=== PATIENT | male | born 1950 | race Caucasian/White ===

== ENCOUNTER 2019-02-07 06:58 | Day surgery (SDC) | payer OTHER ==
[~2019-02-07] VITALS: Ht 165.1 cm; Wt 83.5 kg
[2019-02-07 07:44] VITALS: Ht 165.1 cm; Wt 83.5 kg
[2019-02-07] MEDS ORDERED: TERAZOSIN PO (07:59)
[2019-02-07] MEDS ORDERED: LEVOTHYROXINE PO (07:59)
[2019-02-07] MEDS ORDERED: ASPI-817 PO (07:59)
[2019-02-07] MEDS ORDERED: SIMVASTATIN PO (07:59)
[2019-02-07 08:11] VITALS: BP 145/63; PULSE 63; RESP 18
--- NOTE | 2019-02-07 09:44 | PREAC ---
Date/Time of Note Date/Time of Note DATE: 02/07/19 TIME: 09:43 Anesthesia Eval and Record Evaluation Time Pre-Procedure Interview DATE: 02/07/19 TIME: 09:43 Age 68 Sex male NPO: 8 hrs Preoperative diagnosis screening Planned procedure colonoscopy Past Medical History Past Medical History: Includes Cardio: HTN, Dyslipidemia Endo: Hypothyroid GI: Other (hemorrhoids) Surgery & Anesthesia Issues No known issue Meds Anticoagulation: No Beta Hans within 24 hr: No Reason Beta Hans not given: Pt. not on B-Hans Reported Medications [Simvastatin] No Conflict Check, PO 02/07/19 [Levothyroxine] No Conflict Check, PO 02/07/19 Aspirin* (Aspirin* EC) 81 Mg Tablet.dr, 81 MG PO DAILY, TAB 02/07/19 [Terazosin] No Conflict Check, PO 02/07/19 Meds reviewed: Yes Allergies Coded Allergies: No Known Allergy (Unverified , 02/07/19) Allergies Reviewed: Yes Labs/Studies Labs Reviewed: Reviewed by anesthesiologist test: N/A Pre-procedure Exam Last vitals Vital Signs Date Temp Pulse Resp B/P (MAP) Pulse Ox O2 O2 Flow FiO2 Time Delivery Rate 02/07/19 97.1 63 18 145/63 99 Room Air 08:11 (90) Airway: Adequate mouth opening, Adequate thyromental dist Mallampati: Mallampati II Teeth: Normal Lung: Normal Heart: Normal ASA Physical Status ASA physical status: 2 Emergency: None Planned Anesthetic General/MAC: Mask Planned Pain Management Parenteral pain med Pre-operative Attestations Prior to commencing anesthesia and surgery, the patient was re-evaluated, there was verification of: *The patient's identity *The results of appropriate recent lab work and preoperative vital signs *The above evaluation not changing prior to induction *Anesthetic plan, risk benefits, alternative and complications discussed with patient/family; questions answered; patient/family understands, accepts and wishes to proceed. MILLY CARABALLO MD Feb 07, 2019 09:44
[2019-02-07] MEDS ORDERED: LIDOCAINE 2% (SDV) 5 ML INJ ONE (09:45)
[2019-02-07] MEDS ORDERED: PROPOFOL 40 ML ONE (09:45)
[2019-02-07] MEDS ORDERED: ONDANSETRON 4 MG INJ IV PRN (10:00)
[2019-02-07] MEDS ORDERED: HYDROmorphONE 1 MG/5 ML IV SYRINGE IV PRN (10:00)
--- NOTE | 2019-02-07 10:34 | PAC ---
Date/Time of Note Date/Time of Note DATE: 02/07/19 TIME: 10:34 Post-Anesthesia Notes Post-Anesthesia Note Last documented vital signs Vital Signs Date Temp Pulse Resp B/P (MAP) Pulse Ox O2 O2 Flow FiO2 Time Delivery Rate 02/07/19 97.1 63 18 145/63 99 Room Air 08:11 (90) Activity: WNL Respiratory function: WNL Cardiovascular function: WNL Mental status: Baseline Pain reasonably controlled: Yes Hydration appropriate: Yes Nausea/Vomiting absent: Yes Comments BP: 110/68 HR: 70 RR: 16 T: 98 SaO2: 99% MILLY CARABALLO MD Feb 07, 2019 10:34
[2019-02-07 10:54] VITALS: BP 132/81; PULSE 66; RESP 14
== END 2019-02-07 15:16 | disposition home or self-care (01) ==
LOC: GIL 06:58
PROVIDERS: ATTEND Internal Medicine Gastroenterology
DX: Z12.11 Encounter for screening for malignant neoplasm of colon (principal); D12.5 Benign neoplasm of sigmoid colon; K64.8 Other hemorrhoids
CPT/HCPCS: 45380; 88305; Z7610

== ENCOUNTER 2019-05-30 16:18 | Day surgery (SDC) | payer OTHER ==
[2019-05-29 17:36] VITALS: BMI 29.1
[2019-05-30] VITALS (11 sets, daily range): BP systolic 100–137; BP diastolic 55–75; PULSE 68–94; RESP 17–24; Ht 167.6 cm; Wt 80.9 kg
[~2019-05-30] VITALS: Ht 167.6 cm; Wt 80.9 kg
[~2019-05-30 16:18] MED LIST: ASPI-817 PO; CEFAZOLIN 2 GM/50 ML (PMX) 50 ML IVPB ONE; LEVOTHYROXINE PO; SIMVASTATIN PO; TERAZOSIN PO
[2019-05-30] MEDS ORDERED: LACTATED RINGER'S 1,000 ML IV SCH (17:00)
[2019-05-30] MEDS ORDERED: AMLO2.5T78 PO (17:31)
[2019-05-30] MEDS ORDERED: ALLO100T PO (17:31)
[2019-05-30] MEDS ORDERED: EZET10TA31 PO (17:31)
[2019-05-30] MEDS ORDERED: POLYMYXIN/BACITRACIN 1L IRRIG ONE (18:00)
[2019-05-30] MEDS ORDERED: BUPIVACAINE 0.5% (SDV) 30 ML INJ ONE (18:00)
[2019-05-30] MEDS ORDERED: LIDOCAINE 1% (MPF) 30 ML INJ ONE (18:00)
--- NOTE | 2019-05-30 18:37 | HPN ---
Date/Time of Note Date/Time of Note DATE: 05/30/19 TIME: 18:37 Interval H&P Admission Note Pt. seen H&P reviewed: No system changes ALEXANDRA CAMACHO May 30, 2019 18:37
[2019-05-30] MEDS ORDERED: ROPIVACAINE 0.5 % 30 ML VIAL ONE (19:01)
[2019-05-30] MEDS ORDERED: KETAMINE (50 MG/ML) 10 ML VIAL ONE (19:32)
--- NOTE | 2019-05-30 19:51 | PREAC ---
Date/Time of Note Date/Time of Note DATE: 05/30/19 TIME: 19:49 Anesthesia Eval and Record Evaluation Time Pre-Procedure Interview DATE: 05/30/19 TIME: 19:49 Age 68 Sex male NPO: 8 hrs Preoperative diagnosis RIGHT DISTAL RADIUS FRACTURE Planned procedure ORIF RIGHT DISTAL RADIUS FRACTURE Past Medical History Past Medical History: Includes Cardio: HTN, Dyslipidemia Endo: Hypothyroid Surgery & Anesthesia Issues No known issue Meds Anticoagulation: No Beta Hans within 24 hr: No Reason Beta Hans not given: Pt. not on B-Hans Reported Medications Allopurinol* (Allopurinol*) 100 Mg Tablet, 100 MG PO DAILY, TAB 05/30/19 Ezetimibe* (Zetia*) 10 Mg Tablet, 10 MG PO DAILY, TAB 05/30/19 Amlodipine Besylate* (Amlodipine Besylate*) 2.5 Mg Tablet, 2.5 MG PO DAILY, #30 TAB 05/30/19 [Simvastatin] No Conflict Check, 20 MG PO DAILY 02/07/19 [Levothyroxine] No Conflict Check, 100 MCG PO DAILY 02/07/19 Aspirin* (Aspirin* EC) 81 Mg Tablet.dr, 81 MG PO DAILY, TAB 02/07/19 [Terazosin] 5 No Conflict Check, 5 MG PO DAILY 02/07/19 Current Medications Lactated Ringer's 1,000 ml @ 25 mls/hr Q24H IV Last administered on 05/30/19at 17:13; Admin Dose 25 MLS/HR; Start 05/30/19 at 17:00 Meds reviewed: Yes Allergies Coded Allergies: No Known Allergy (Unverified , 05/30/19) Allergies Reviewed: Yes Labs/Studies Labs Reviewed: Reviewed by anesthesiologist test: N/A Studies: ECG (NL), CXR (NAPD) Pre-procedure Exam Last vitals Vital Signs Date Temp Pulse Resp B/P (MAP) Pulse Ox O2 O2 Flow FiO2 Time Delivery Rate 05/30/19 98.9 73 18 137/75 99 Room Air 16:47 (95) Airway: Adequate mouth opening, Adequate thyromental dist Mallampati: Mallampati II Teeth: Normal Lung: Normal Heart: Normal ASA Physical Status ASA physical status: 2 Emergency: None Planned Anesthetic General/MAC: ETT Nerve block: Brachial plexus (right) Planned Pain Management Parenteral pain med Pre-operative Attestations Prior to commencing anesthesia and surgery, the patient was re-evaluated, there was verification of: *The patient's identity *The results of appropriate recent lab work and preoperative vital signs *The above evaluation not changing prior to induction *Anesthetic plan, risk benefits, alternative and complications discussed with patient/family; questions answered; patient/family understands, accepts and wishes to proceed. Giorgio Fox M.D. May 30, 2019 19:51
[2019-05-30] MEDS ORDERED: LABETALOL HCL 20MG INJ IV PRN (20:00)
[2019-05-30] MEDS ORDERED: TRIMETHOBENZAMIDE 100 MG/ML VIAL IM PRN (20:00)
[2019-05-30] MEDS ORDERED: hydrALAzine 20 MG INJ IV PRN (20:00)
[2019-05-30] MEDS ORDERED: IPRATROPIUM (NEB) 0.5 MG/2.5 ML AMP HHN PRN (20:00)
[2019-05-30] MEDS ORDERED: ALBUTEROL 0.083% (NEB) 2.5 MG/3 ML AMP HHN PRN (20:00)
[2019-05-30] MEDS ORDERED: EPHEDrine 25 MG/5 ML SYG IV PRN (20:00)
[2019-05-30] MEDS ORDERED: MEPERIDINE 25 MG INJ IV PRN (20:00)
[2019-05-30] MEDS ORDERED: HYDROmorphONE 1 MG/5 ML IV SYRINGE IV PRN ×3 (20:00)
[2019-05-30] MEDS ORDERED: DIPHENHYDRAMINE 50 MG INJ IV PRN (20:00)
[2019-05-30] MEDS ORDERED: FENTAnyl 50 MCG/ML VIAL IV PRN ×3 (20:00)
[2019-05-30] MEDS ORDERED: OXYCODONE/ACETAMINOPHEN (5/325) TAB PO PRN ×2 (20:00)
[2019-05-30] MEDS ORDERED: MIDAZOLAM 1 MG/ML 2 ML INJ IV PRN (20:00)
[2019-05-30] MEDS ORDERED: ONDANSETRON 4 MG INJ IV PRN (20:00)
[2019-05-30] MEDS ORDERED: PROPOFOL 20 ML ONE (20:02)
[2019-05-30] MEDS ORDERED: GLYCOPYRROLATE 0.4 MG INJ ONE (20:02)
[2019-05-30] MEDS ORDERED: MIDAZOLAM 1 MG/ML 2 ML INJ ONE (20:02)
[2019-05-30] MEDS ORDERED: NEOSTIGMINE 3 MG/3 ML SYRINGE ONE (20:02)
[2019-05-30] MEDS ORDERED: ROCURONIUM 50 MG INJ ONE (20:02)
[2019-05-30] MEDS ORDERED: CEFAZOLIN 1 GM INJ ONE (20:02)
[2019-05-30] MEDS ORDERED: FENTAnyl 50 MCG/ML VIAL ONE (20:03)
[2019-05-30] MEDS ORDERED: ONDANSETRON 4 MG INJ ONE (20:03)
[2019-05-30] MEDS ORDERED: DEXAMETHASONE 4 MG/ML 5 ML INJ ONE (20:03)
[2019-05-30] MEDS ORDERED: KETOROLAC 30 MG INJ ONE (21:32)
--- NOTE | 2019-05-30 22:06 | OPPN ---
Date/Time of Note Date/Time of Note DATE: 05/30/19 TIME: 22:05 Operative Report Preoperative Diagnosis Right distal radius fracture, intra-articular, greater than 3 fragments Right carpal tunnel syndrome Postoperative Diagnosis Right distal radius fracture, intra-articular, greater than 3 fragments Right carpal tunnel syndrome Operation/Procedure Performed Right distal radius fracture, intra-articular, greater than 3 fragments ORIF Right carpal tunnel release Surgeon see signature line sociology research assistant none Anesthesia: general, other (peripheral nerve block) Estimated blood loss: 0 - 10 ml's Transfusion Required none Specimen none Grafts/Implants none Complications none ALEXANDRA CAMACHO May 30, 2019 22:06
--- NOTE | 2019-05-31 02:30 | OPR ---
DATE OF OPERATION: 05/30/2019 SURGEON: Alexandra Keyes MD ANESTHESIA: Peripheral nerve block plus MAC. PREOPERATIVE DIAGNOSES: 1. Right distal radius fracture, intraarticular, greater than 3 fragments. 2. Right carpal tunnel syndrome. POSTOPERATIVE DIAGNOSES: 1. Right distal radius fracture, intraarticular, greater than 3 fragments. 2. Right carpal tunnel syndrome. PROCEDURE: 1. Open reduction and internal fixation of right distal radius fracture, intraarticular, greater ruth n 3 fragments. 2. Right carpal tunnel release, open. 3. Lengthening of the right wrist brachioradialis tendon at the radial wrist. OPERATIVE FINDINGS: Intraarticular distal radius fracture with comminution and swelling at the carpa l canal. INDICATION FOR PROCEDURE: A 68-year-old male with injury to the right wrist, who was seen in the [facility] and diagnosed with a displaced distal radius fracture. We discussed the options. The patient el ected to proceed with surgical intervention, understanding the risks and benefits. DESCRIPTION OF PROCEDURE: The patient was seen in the preoperative area and all further questions we re answered. Again, he gave informed consent, understanding the risks and benefits. He was taken to the operative suite and placed in supine position. A peripheral nerve block was performed by the an esthesia team and sedation was administered. Ancef 2 grams IV given, and tourniquet placed in the [facility] upper extremity. Right upper extremity was prepped with ChloraPrep stick and draped in the usual sterile fashion. Esmarch bandage was used to exsanguinate the extremity and tourniquet inflated to 250 mmHg. Attention was first turned to the distal radius fracture and a modified volar Domingo approa ch to the distal radius was utilized with sharp dissection carried down through skin and subcutaneous tissue. The FCR sheath was incised and the FCR tendon retracted ulnarly. The FCR subsheath incised and FPL tendon retracted ulnarly. The pronator quadratus was elevated off its radial and distal bor ders and the fracture site was identified. There was displacement of the fracture radially and dorsa lly, and a lengthening of the brachioradialis tendon was performed using a 15 blade knife and Bovie e lectrocautery, elevating the brachioradialis off of the radial styloid and lengthening the tendon. I was able to reduce the fracture into a more anatomic position and a [employer] volar distal radius dean te was placed across the fracture site. Cortical screw was placed in the oblong hole and locking scr ews distally. X-ray imaging showed appropriate hardware placement and bony alignment. Additional co rtical and locking screws were placed proximally and distally and final x-ray imaging showed appropri ate hardware placement and bony alignment. The wound was copiously irrigated. Skin closed with 5-0 nylon. Attention was turned to the carpal tunnel and a 2 cm incision at the base of the palm was uti lized with sharp dissection carried down through skin and subcutaneous tissue. The palmar aponeurosi s was incised along its ulnar border and retractors were deepened. The transverse carpal ligament wa s divided along its ulnar border approximately 3 mm radial to the hook of the hamate. Retractor was placed proximally and distally and the proximal and distal extensor transverse carpal ligaments were divided under direct visualization. Wound was copiously irrigated. Skin closed with 5-0 nylon. Xer oform placed over the wounds, followed by sterile gauze, Webril, and a short arm splint. Tourniquet deflated after 33 minutes. The patient was awakened from anesthesia. He was taken to the postoperat sandra suite in stable condition, tolerated the procedure well without complication. SPECIMENS: None. ESTIMATED BLOOD LOSS: 5 mL. COUNTS: Sponge, instrument, and needle counts correct. TOURNIQUET TIME: 33 minutes. CONDITION ON DISCHARGE: Stable. The patient was given a nonrefillable 5-day prescription for pain medication for surgery today. Dictated By: ALEXANDRA FRENCH/LAUREN Conf#: [id number] DID#: [id number]
--- NOTE | 2019-05-31 08:57 | PAC ---
Date/Time of Note Date/Time of Note DATE: 05/31/19 TIME: 08:57 Post-Anesthesia Notes Post-Anesthesia Note Last documented vital signs Vital Signs Date Temp Pulse Resp B/P (MAP) Pulse Ox O2 O2 Flow FiO2 Time Delivery Rate 05/30/19 70 20 131/65 96 Room Air 22:56 (87) 05/30/19 98.3 22:16 Activity: WNL Respiratory function: WNL Cardiovascular function: WNL Mental status: Baseline Pain reasonably controlled: Yes Hydration appropriate: Yes Nausea/Vomiting absent: Yes Giorgio Fox M.D. May 31, 2019 08:57
== END 2019-05-30 23:25 | disposition home or self-care (01) ==
LOC: SDS 16:18
PROVIDERS: ATTEND Orthopaedic Surgery Hand Surgery
DX: S52.571D Other intraarticular fracture of lower end of right radius, subsequent encounter for closed fracture with routine healing (principal); X58.XXXD Exposure to other specified factors, subsequent encounter; G56.01 Carpal tunnel syndrome, right upper limb; E78.5 Hyperlipidemia, unspecified; I10 Essential (primary) hypertension; E03.9 Hypothyroidism, unspecified
CPT/HCPCS: 64721; 73110; C1713; J0690; J1100; J1885; J2250; J2405; J2710; J2795; J3010; Z7512; Z7610